=== PATIENT | male | born 1990 | race Caucasian/White ===

== ENCOUNTER 2017-06-06 14:42 | Emergency (ER) | payer OTHER ==
[~2017-06-06] VITALS: Ht 182.8 cm; Wt 79.4 kg
[~2017-06-06 14:42] MED LIST: ACULAR 3ML 3 ML5 ML OPH; TOBREX OPHTH S2.5 ML OPH
[2017-06-06] MEDS ORDERED: ZOFRAN4 MG PO (14:47)
== END 2017-06-06 14:53 | disposition home or self-care (01) ==
LOC: ED 14:42
DX: K52.9 Noninfective gastroenteritis and colitis, unspecified (principal); R03.0 Elevated blood-pressure reading, without diagnosis of hypertension

== ENCOUNTER 2017-12-28 01:49 | Emergency (ER) | payer OTHER ==
[~2017-12-28] VITALS: Ht 182.8 cm; Wt 74.8 kg
[~2017-12-28 01:49] MED LIST changes: +ZOFRAN4 MG PO
[2017-12-28 02:21] LABS: BASO # 0.1 10*3/uL (0.0-0.1); BASO % 0.4 % (0.0-1.0); EOS % 0.1 % (1.0-4.0); HEMATOCRIT 40.4 % (42.0-52.0); HEMOGLOBIN 14.3 g/dl (14.0-18.0); LYMPH # 0.9 10*3/uL (1.3-4.4); LYMPH % 6.8 % (27.0-41.0); MEAN CELL VOLUME 90.6 fl (80.0-94.0); MEAN CORPUSCULAR HGB 32.1 pg (27.0-31.0); MEAN CORPUSCULAR HGB CONC 35.4 g/dl (33.0-37.0); MONO % 7.2 % (3.0-9.0); NEUT # 11.8 10*3/uL (2.3-7.9); NEUT % 85.2 % (47.0-73.0); PLATELET COUNT AUTOMATED 182 10*3/uL (130-400); RED BLOOD COUNT 4.46 10*6/uL (4.50-5.90); RED CELL DISTRI WIDTH 12.5 % (0-14.5); WHITE BLOOD COUNT 13.9 10*3/uL (4.8-10.8)
[2017-12-28 02:36] LABS: ALKALINE PHOSPHATASE 64 U/L (45-117); BUN 15 mg/dl (7-24); CHLORIDE 105 mmol/L (98-107); CREATININE 0.97 mg/dL (0.70-1.30); POTASSIUM 3.3 mmol/L (3.5-5.1); SGOT/AST 12 IU/L (3-35); SGPT/ALT 18 U/L (12-78); SODIUM 137 mmol/L (136-145); TOTAL PROTEIN 7.9 gm/dL (6.4-8.2)
[2017-12-28 02:39] LABS: BILIRUBIN NEGATIVE (NEGATIVE); BLOOD 1+ (NEGATIVE); CLARITY CLEAR (CLEAR); COLOR YELLOW (YELLOW); GLUCOSE NEGATIVE (NEGATIVE); KETONE NEGATIVE (NEGATIVE); LEUKO ESTERASE NEGATIVE (NEGATIVE); NITRITE NEGATIVE (NEGATIVE); UROBILINOGEN 0.2 E.U./dl (0.2-1.0)
[2017-12-28] MEDS ORDERED: Motrin,Rufen800 MG PO (03:51)
[2017-12-28] MEDS ORDERED: ZITHROMAX250 MG PO (03:51)
== END 2017-12-28 04:30 | disposition home or self-care (01) ==
LOC: ED 01:49
PROVIDERS: Emergency Medicine Emergency Medical Services
DX: J02.9 Acute pharyngitis, unspecified (principal); J06.9 Acute upper respiratory infection, unspecified; M54.9 Dorsalgia, unspecified; H92.09 Otalgia, unspecified ear; F17.200 Nicotine dependence, unspecified, uncomplicated; R30.0 Dysuria

== ENCOUNTER 2018-10-05 15:31 | Emergency (ER) | payer SELFPAY ==
[~2018-10-05] VITALS: Ht 187.9 cm; Wt 63.5 kg
[~2018-10-05 15:31] MED LIST changes: +Motrin,Rufen800 MG PO; +ZITHROMAX250 MG PO
[2018-10-05] MEDS ORDERED: IBU800 M2 PO (17:49)
[2018-10-05] MEDS ORDERED: DEBROX15 ML OT (17:49)
[2018-10-05] MEDS ORDERED: ZOFRAN4 MG PO (17:49)
== END 2018-10-05 17:56 | disposition home or self-care (01) ==
LOC: ED 15:31
DX: S06.0X1A Concussion with loss of consciousness of 30 minutes or less, initial encounter (principal); R06.02 Shortness of breath; M79.605 Pain in left leg; H61.22 Impacted cerumen, left ear; R10.9 Unspecified abdominal pain; Z79.2 Long term (current) use of antibiotics; Z79.899 Other long term (current) drug therapy; Y04.2XXA Assault by strike against or bumped into by another person, initial encounter; Y93.89 Activity, other specified; Y92.410 Unspecified street and highway as the place of occurrence of the external cause; Y99.8 Other external cause status

== ENCOUNTER 2019-07-25 17:57 | Emergency (ER) | payer SELFPAY ==
[~2019-07-25] VITALS: Ht 182.8 cm; Wt 70.3 kg
[~2019-07-25 17:57] MED LIST changes: +DEBROX15 ML OT; +IBU800 M2 PO
[2019-07-25] MEDS ORDERED: Motrin,Rufen800 MG PO (20:23)
== END 2019-07-25 20:30 | disposition home or self-care (01) ==
LOC: ED 17:57
DX: T24.232A Burn of second degree of left lower leg, initial encounter (principal); S90.512A Abrasion, left ankle, initial encounter; Z79.899 Other long term (current) drug therapy; V98.8XXA Other specified transport accidents, initial encounter; Y93.89 Activity, other specified; Y92.89 Other specified places as the place of occurrence of the external cause; Y99.8 Other external cause status

== ENCOUNTER 2019-08-16 22:32 | Emergency (ER) | payer SELFPAY ==
[2019-08-16] MEDS ORDERED: CEFADROXIL500 M1 PO (22:54)
== END 2019-08-16 23:24 | disposition home or self-care (01) ==
LOC: ED 22:32
DX: L08.9 Local infection of the skin and subcutaneous tissue, unspecified (principal); R06.02 Shortness of breath; J02.9 Acute pharyngitis, unspecified

== ENCOUNTER 2019-09-23 14:32 | Emergency (ER) | payer SELFPAY ==
[~2019-09-23] VITALS: Ht 182.8 cm; Wt 70.3 kg
[~2019-09-23 14:32] MED LIST changes: +CEFADROXIL500 M1 PO
[2019-09-23] MEDS ORDERED: VIBRAMYCIN100 MG PO (17:04)
== END 2019-09-23 17:26 | disposition home or self-care (01) ==
LOC: ED 14:32
DX: L02.211 Cutaneous abscess of abdominal wall (principal); J40 Bronchitis, not specified as acute or chronic; Z79.899 Other long term (current) drug therapy

== ENCOUNTER 2020-06-06 19:40 | Emergency (ER) | payer SELFPAY ==
[~2020-06-06] VITALS: Ht 182.8 cm; Wt 74.8 kg
[~2020-06-06 19:40] MED LIST changes: +VIBRAMYCIN100 MG PO
== END 2020-06-06 21:45 | disposition home or self-care (01) ==
LOC: ED 19:40
DX: U07.1 COVID-19 (principal); B34.9 Viral infection, unspecified; F17.200 Nicotine dependence, unspecified, uncomplicated; Z79.899 Other long term (current) drug therapy

== ENCOUNTER 2021-09-30 05:43 | Emergency (ER) | payer SELFPAY ==
[~2021-09-30] VITALS: Ht 182.8 cm; Wt 72.6 kg
[2021-09-30 06:23] LABS: BASO % 0.4 % (0.0-1.0); EOS % 0.6 % (1.0-4.0); HEMATOCRIT 39.5 % (42.0-52.0); LYMPH # 0.2 10*3/uL (1.3-4.4); MEAN CELL VOLUME 93.2 fl (80.0-94.0); MEAN CORPUSCULAR HGB 32.1 pg (27.0-31.0); MEAN CORPUSCULAR HGB CONC 34.4 g/dl (33.0-37.0); MEAN PLATELET VOLUME 10.8 fl (9.6-12.3); MONO # 0.5 10*3/uL (0.1-1.0); NEUT % 82.8 % (47.0-73.0); PLATELET COUNT AUTOMATED 145 10*3/uL (130-400); RED BLOOD COUNT 4.24 10*6/uL (4.50-5.90); RED CELL DISTRI WIDTH 12.3 % (0-14.5); WHITE BLOOD COUNT 4.8 10*3/uL (4.8-10.8)
[2021-09-30 06:31] LABS: ALKALINE PHOSPHATASE 59 U/L (45-117); BUN 15 mg/dl (7-24); CHLORIDE 103 mmol/L (98-107); CREATININE 1.05 mg/dL (0.70-1.30); LIPASE 79 U/L (73-393); POTASSIUM 3.1 mmol/L (3.5-5.1); SGOT/AST 18 IU/L (3-35); SGPT/ALT 22 U/L (12-78); SODIUM 136 mmol/L (136-145); TOTAL PROTEIN 7.7 gm/dL (6.4-8.2)
[2021-09-30 07:39] LABS: BILIRUBIN Negative (Negative); BLOOD Negative (Negative); CLARITY Clear (Clear); COLOR Yellow (Yellow); GLUCOSE Negative (Negative); KETONE Negative (Negative); LEUKO ESTERASE Negative (Negative); NITRITE Negative (Negative); PH 5.5 (4.5-8.0)
[2021-09-30 07:54] LABS: RBC 0-2 rbc/hpf (0-2); WBC 0-2 wbc/hpf (0-5)
== END 2021-09-30 08:45 | disposition home or self-care (01) ==
LOC: ED 05:43
PROVIDERS: Emergency Medicine
DX: R10.9 Unspecified abdominal pain (principal); B34.9 Viral infection, unspecified; Z79.2 Long term (current) use of antibiotics

== ENCOUNTER 2021-11-28 12:12 | Emergency (ER) | payer SELFPAY | END 2021-11-28 13:42 | LOC: ED 12:12 | DX: F10.129 Alcohol abuse with intoxication, unspecified (principal); R45.851 Suicidal ideations; M25.511 Pain in right shoulder; Y90.9 Presence of alcohol in blood, level not specified ==

== ENCOUNTER 2021-12-17 14:21 | Emergency (ER) | payer SELFPAY ==
[~2021-12-17] VITALS: Ht 182.8 cm; Wt 77.1 kg
[2021-12-17 15:01] LABS: BASO # 0.1 10*3/uL (0.0-0.1); BASO % 0.9 % (0.0-1.0); EOS % 0.3 % (1.0-4.0); HEMATOCRIT 44.5 % (42.0-52.0); LYMPH # 1.7 10*3/uL (1.3-4.4); LYMPH % 24.7 % (27.0-41.0); MEAN CELL VOLUME 92.3 fl (80.0-94.0); MEAN CORPUSCULAR HGB 32.6 pg (27.0-31.0); MEAN CORPUSCULAR HGB CONC 35.3 g/dl (33.0-37.0); MEAN PLATELET VOLUME 10.5 fl (9.6-12.3); MONO # 0.7 10*3/uL (0.1-1.0); MONO % 9.5 % (3.0-9.0); NEUT # 4.4 10*3/uL (2.3-7.9); NEUT % 64.5 % (47.0-73.0); PLATELET COUNT AUTOMATED 265 10*3/uL (130-400); RED BLOOD COUNT 4.82 10*6/uL (4.50-5.90); RED CELL DISTRI WIDTH 12.6 % (0-14.5); WHITE BLOOD COUNT 6.9 10*3/uL (4.8-10.8)
[2021-12-17 15:20] LABS: ALKALINE PHOSPHATASE 81 U/L (45-117); BUN 18 mg/dl (7-24); CHLORIDE 107 mmol/L (98-107); CREATININE 1.02 mg/dL (0.70-1.30); POTASSIUM 3.6 mmol/L (3.5-5.1); SGOT/AST 17 IU/L (3-35); SGPT/ALT 32 U/L (12-78); SODIUM 139 mmol/L (136-145); TOTAL PROTEIN 8.5 gm/dL (6.4-8.2)
[2021-12-17 15:28] LABS: ACETAMINOPHEN (TYLENOL) < 5.0 ug/ml (10-30); ETHYL ALCOHOL < 3.0 mg/dl (<3)
[2021-12-17 17:24] LABS: BILIRUBIN Negative (Negative); BLOOD Negative (Negative); CLARITY Cloudy (Clear); COLOR Dark Yellow (Yellow); GLUCOSE Negative (Negative); KETONE Trace (Negative); LEUKO ESTERASE Negative (Negative); NITRITE Negative (Negative); PH 5.5 (4.5-8.0); SPECIFIC GRAVITY 1.025 (1.001-1.030)
[2021-12-17 17:31] LABS: URINE AMPHETAMINES < 1000 (1000ng/ml); URINE BARBITURATES < 200 (200ng/ml); URINE BENZODIAZEPINES < 200 (200ng/ml); URINE CANNABINOIDS (THC) > 50 (50ng/ml); URINE COCAINE < 300 (300ng/ml); URINE METHADONE < 300 (300ng/ml); URINE OPIATES < 300 (300ng/ml)
[2021-12-17 17:34] LABS: URINE PHENCYCLIDINE < 25 (25ng/ml)
[2021-12-17 17:37] LABS: MUCOUS 2+; RBC 0-2 rbc/hpf (0-2)
== END 2021-12-18 09:29 ==
LOC: ED 14:21
PROVIDERS: Emergency Medicine
DX: F43.21 Adjustment disorder with depressed mood (principal); Z20.822 Contact with and (suspected) exposure to COVID-19

== ENCOUNTER → 2022-03-30 | Outpatient (CLI) | payer OTHER | END | disposition home or self-care (01) | LOC: CT 16:10 | PROVIDERS: ATTEND Specialist | DX: J34.2 Deviated nasal septum (principal) ==

== ENCOUNTER → 2022-04-27 | Day surgery (SDC) | payer OTHER ==
[2022-04-23 12:48] VITALS: BP 104/76
[~2022-04-27] VITALS: Ht 180.3 cm; Wt 72.6 kg
[~2022-04-27] MED LIST changes: +ABILIFY5 MG PO; +LEXAPRO10 MG PO; +REMERON15 M2 PO
[2022-04-27 11:46] VITALS: BP 117/79
[2022-04-27 12:01] VITALS: BP 126/86
[2022-04-27 12:16] VITALS: BP 120/76
[2022-04-27 12:31] VITALS: BP 120/80
[2022-04-27 12:46] VITALS: BP 118/75
[2022-04-27 13:01] VITALS: BP 110/67
== END | disposition home or self-care (01) ==
LOC: SDC 04-23 12:30
PROVIDERS: ATTEND Specialist
DX: J34.2 Deviated nasal septum (principal); J32.0 Chronic maxillary sinusitis; F32.A Depression, unspecified; J45.909 Unspecified asthma, uncomplicated; F41.9 Anxiety disorder, unspecified; F17.210 Nicotine dependence, cigarettes, uncomplicated

== ENCOUNTER 2022-04-28 03:22 | Emergency (ER) | payer OTHER ==
[~2022-04-28] VITALS: Ht 185.4 cm; Wt 72.6 kg
== END 2022-04-28 03:59 | disposition home or self-care (01) ==
LOC: ED 03:22
DX: G89.18 Other acute postprocedural pain (principal); F32.A Depression, unspecified; J45.909 Unspecified asthma, uncomplicated; F41.9 Anxiety disorder, unspecified; Z98.890 Other specified postprocedural states

== ENCOUNTER 2022-05-25 17:22 | Emergency (ER) | payer OTHER ==
[~2022-05-25] VITALS: Ht 180.3 cm; Wt 72.6 kg
== END 2022-05-25 18:19 | disposition home or self-care (01) ==
LOC: ED 17:22
DX: G89.18 Other acute postprocedural pain (principal); R09.81 Nasal congestion; F32.A Depression, unspecified; J45.909 Unspecified asthma, uncomplicated; F41.9 Anxiety disorder, unspecified; Z98.890 Other specified postprocedural states

== ENCOUNTER → 2023-02-03 | Outpatient (CLI) | payer OTHER | END | disposition home or self-care (01) | LOC: RAD 14:32 | PROVIDERS: ATTEND Nurse Practitioner Family | DX: R10.9 Unspecified abdominal pain (principal); R31.9 Hematuria, unspecified ==